=== PATIENT | male | born 1960 | race Caucasian/White ===

== ENCOUNTER 2020-11-27 03:27 | Emergency (ER) | payer SELFPAY ==
--- NOTE | 2020-11-27 03:49 | EDM.PDOC ---
ED HPI GENERAL MEDICAL PROBLEM - General Chief Complaint: Chest Pain Stated Complaint: Chest Pain Time Seen by Provider: 11/27/20 03:48 Source of Information: Reports: Patient History Limitations: Reports: No Limitations - History of Present Illness INITIAL COMMENTS - FREE TEXT/NARRATIVE: 60-year-old male presents to the ED complaining of central chest discomfort that started about 1930 hrs. last evening about an hour and a half 80 after eating supper. He cannot remember for sure what he ate for supper. He did recognize that he seemed to have some distention of the upper abdomen and did drink some rebecca jean-paul last night with some improvement in the chest pressure discomfort with burping and belching. Patient appreciated that his blood pressure was mildly elevated last evening before going to bed and remains elevated. He was on blood pressure medication in the past but was able to get off of it with weight loss. Blood pressure was 167/100. This is higher than normal for him. He has been sleeping off and on during the night but every time he wakes up he still has central chest discomfort with no radiation through to his back. He is feeling some pain in his left shoulder and down his left arm. 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 He has no known cardiac history. Denies being diabetic. Has been having more GERD symptoms recently. Was previously on Prilosec but has been off for several months. Is using more Tums and Rolaids recently. He has had no abdominal surgery. Onset: Gradual Onset Date: 11/26/20 Onset Time: 19:30 Duration: Hour(s):, Constant Location: Reports: Chest (Central retrosternal chest discomfort. Retrosternal chest discomfort rating up towards the left shoulder and down the medial left arm.), Upper Extremity, Left Quality: Reports: Ache, Pressure Severity: Moderate (The discomfort is 4 out of 10.) Improves with: Reports: None Worsens with: Reports: None Context: Denies: Activity, Exercise, Lifting, Sick Contact, Trauma, Other Associated Symptoms: Reports: Chest Pain (Anginal chest discomfort since 1930 hrs. last evening. No change in the severity or rare cough), Cough (Casual sputum production but he has not looked at the color of it.), cough w sputum, Shortness of Breath. Denies: No Other Symptoms, Confusion (position of the pain. 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 He did take 1 baby aspirin last evening. He usually takes 1 every morning as well.) Middle Chest Pain Score (Numeric/FACES): 3 - Related Data Allergies Allergy/AdvReac Type Severity Reaction Status Date / Time Sulfa (Sulfonamide Allergy Severe Hives Verified 11/27/20 03:47 Antibiotics) Home Meds: Home Meds Aspirin [Sukhwinder Chewable] 81 mg PO DAILY 11/27/20 [History] Past Medical History Cardiovascular History: Reports: Hypertension (History of hypertension in the past but got off medications with weight loss.) Respiratory History: Reports: None Musculoskeletal History: Reports: Back Pain, Chronic, Osteoarthritis Endocrine/Metabolic History: Reports: Obesity/BMI 30+ Social & Family History - Tobacco Use Tobacco Use Status *Q: Never Tobacco User - Recreational Drug Use Recreational Drug Use: No - Living Situation & Occupation 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 Denies: Fever, Chills, Malaise, Weakness, Decreased Appetite, Weight Loss HEENT: Reports: Glasses Respiratory: Reports: Shortness of Breath, Cough, Sputum. Denies: Wheezing, Pleuritic Chest Pain, Hemoptysis (Occasional cough occasional sputum production but he has not looked at the color.) Cardiovascular: Reports: Chest Pain, Blood Pressure Problem (Chest discomfort since 1930 hrs. last evening. Problematic in the past but higher this), Dyspnea on Exertion. Denies: Claudication, Edema, Lightheadedness, Orthopnea ( last 24 hours than normal.), Palpitations Endocrine: Reports: Fatigue GI/Abdominal: Reports: Other (Has GERD with intermittent use of Tums and Rolaids. Previously on Prilosec but but has been off for 3 months.) : Reports: Frequency, Other (Nocturia usually x2.) Musculoskeletal: Reports: Neck Pain, Joint Pain (Knees hips low back left upper shoulder pain) Skin: Reports: No Symptoms Neurological: Reports: No Symptoms Psychiatric: Reports: No Symptoms Hematologic/Lymphatic: Reports: No Symptoms Immunologic: Reports: No Symptoms ED EXAM, GENERAL - Physical Exam Exam: See Below Exam Limited By: No Limitations General Appearance: Alert, WD/WN, No Apparent Distress, Other (Temperature is 36.8 degrees. Heart rate 77 and sinus. Respiratory is 15. BP is 172/101 but came down to 152/94 after he been in the department for 15 minutes or so.) Eye Exam: Bilateral Eye: Normal Inspection (No blepharal pallor or scleral icterus.), PERRL Throat/Mouth: Normal Inspection, Normal Lips, Normal Oropharynx Head: Atraumatic, Normocephalic Neck: Normal Inspection, Supple, Non-Tender, Full Range of Motion. No: Lymphadenopathy (L), Lymphadenopathy (R) Respiratory/Chest: No Respiratory Distress, Lungs Clear, Normal Breath Sounds, Chest Non-Tender Cardiovascular: Normal Peripheral Pulses, Regular Rate, Rhythm, No Edema, No Gallop, No Murmur, No Rub Peripheral Pulses: 2+: Carotid (L), Carotid (R), Posterior Tibial (L), Posterior Tibial (R), Dorsalis Pedis (L), Dorsalis Pedis (R) GI/Abdominal: Normal Bowel Sounds, Soft, Non-Tender, No Organomegaly, No Mass, Pelvis Stable, Other (No surgical scars. Negative Ratliff sign. Abdominal girth limits ability to palpate solid organs.). No: Guarding, Rigid, Rebound ( No abdominal tenderness could be elicited.), Tender (Male) Exam: No Hernia Back Exam: Normal Inspection, Full Range of Motion. No: CVA Tenderness (L), CVA Tenderness (R) Extremities: Normal Inspection, Normal Range of Motion, Non-Tender, No Pedal Edema Neurological: Alert, Oriented, CN II-XII Intact, Normal Cognition Psychiatric: Normal Affect, Normal Mood Skin Exam: Warm, Dry, Intact, Normal Color, No Rash #1 Interpretation EKG Date: 11/27/20 Time: 03:57 Rhythm: NSR Rate (Beats/Min): 75 [place]: Normal P-Wave: Present QRS: Other (Mildly decreased voltage limb leads early R wave transition consider right ventricular hypertrophy versus septal hypertrophy pattern.) ST-T: Normal (Mild diffuse early repolarization pattern.) QT: Normal EKG Interpretation Comments: Borderline ECG with no signs of ischemia Course - Vital Signs Last Recorded V/S: Last Vital Signs Temp 36.8 C 02/26/21 03:43 Pulse 68 11/27/20 04:49 Resp 18 11/27/20 04:49 BP 131/81 11/27/20 04:49 Pulse Ox 95 11/27/20 04:49 - Orders/Labs/Meds Orders: Active Orders 24 hr Category Date Time Status Chest 1V Frontal [CR] Stat Exams 11/27/20 03:57 Taken EKG 12 Lead [EK] Stat Ther 11/27/20 03:48 Ordered Labs: Laboratory Tests 11/27/20 11/27/20 11/27/20 Range/Units 04:05 04:05 04:05 WBC 9.15 H (4.23-9.07) K/mm3 RBC 4.91 (4.63-6.08) M/mm3 Hgb 14.5 (13.7-17.5) gm/dl Hct 43.9 (40.1-51.0) % MCV 89.4 (79.0-92.2) fl MCH 29.5 (25.7-32.2) pg MCHC 33.0 (32.2-35.5) g/dl RDW Std Deviation 44.3 H (35.1-43.9) fL Plt Count 325 (163-337) K/mm3 MPV 8.9 L (9.4-12.3) fl Neut % (Auto) 67.8 (34.0-67.9) % Lymph % (Auto) 22.1 (21.8-53.1) % [place] % (Auto) 8.0 (5.3-12.2) % Eos % (Auto) 1.6 (0.8-7.0) Baso % (Auto) 0.3 (0.1-1.2) % Neut # (Auto) 6.20 H (1.78-5.38) K/mm3 Lymph # (Auto) 2.02 (1.32-3.57) K/mm3 [place] # (Auto) 0.73 (0.30-0.82) K/mm3 Eos # (Auto) 0.15 (0.04-0.54) K/mm3 Baso # (Auto) 0.03 (0.01-0.08) K/mm3 PT 10.6 (9.7-12.0) SECONDS INR 0.99 APTT 26.9 (21.7-31.4) SECONDS Sodium 140 (136-145) mEq/L Potassium 4.1 (3.5-5.1) mEq/L Chloride 103 (98-107) mEq/L Carbon Dioxide 27 (21-32) mEq/L Anion Gap 14.1 (5-15) BUN 19 H (7-18) mg/dL Creatinine 1.3 (0.7-1.3) mg/dL Est Cr Clr Drug Dosing 55.08 mL/min Estimated GFR (MDRD) 56 (>60) mL/min BUN/Creatinine Ratio 14.6 (14-18) Glucose 109 (80-115) mg/dL Hemoglobin A1c ( - 5.6) % Calcium 10.2 H (8.5-10.1) mg/dL Magnesium 1.9 (1.8-2.4) mg/dl Total Bilirubin 0.3 (0.2-1.0) mg/dL AST 19 (15-37) U/L ALT 38 (16-63) U/L Alkaline Phosphatase 77 (46-116) U/L CK-MB (CK-2) 1.0 (0-3.6) ng/ml Troponin I < 0.017 (0.00-0.056) ng/mL C-Reactive Protein 0.8 (<1.0) mg/dL NT-Pro-B Natriuret Pep (0-125) pg/mL Total Protein 7.6 (6.4-8.2) g/dl Albumin 3.8 (3.4-5.0) g/dl Globulin 3.8 gm/dL Albumin/Globulin Ratio 1.0 (1-2) Urine Color (Yellow) Urine Appearance (Clear) Urine pH (5.0-8.0) Ur Specific [place] (1.005-1.030) Urine Protein (Negative) Urine Glucose (UA) (Negative) Urine Ketones (Negative) Urine Occult Blood (Negative) Urine Nitrite (Negative) Urine Bilirubin (Negative) Urine Urobilinogen (0.2-1.0) Ur Leukocyte Esterase (Negative) Urine RBC (0-5) /hpf Urine WBC (0-5) /hpf Ur Epithelial Cells (0-5) /hpf Urine Bacteria (FEW) /hpf Urine Mucus (FEW) /hpf 0211/27/20 11/27/20 Range/Units 04:05 04:05 05:43 WBC (4.23-9.07) K/mm3 RBC (4.63-6.08) M/mm3 Hgb (13.7-17.5) gm/dl Hct (40.1-51.0) % MCV (79.0-92.2) fl MCH (25.7-32.2) pg MCHC (32.2-35.5) g/dl RDW Std Deviation (35.1-43.9) fL Plt Count (163-337) K/mm3 MPV (9.4-12.3) fl Neut % (Auto) (34.0-67.9) % Lymph % (Auto) (21.8-53.1) % [place] % (Auto) (5.3-12.2) % Eos % (Auto) (0.8-7.0) Baso % (Auto) (0.1-1.2) % Neut # (Auto) (1.78-5.38) K/mm3 Lymph # (Auto) (1.32-3.57) K/mm3 [place] # (Auto) (0.30-0.82) K/mm3 Eos # (Auto) (0.04-0.54) K/mm3 Baso # (Auto) (0.01-0.08) K/mm3 PT (9.7-12.0) SECONDS INR APTT (21.7-31.4) SECONDS Sodium (136-145) mEq/L Potassium (3.5-5.1) mEq/L Chloride (98-107) mEq/L Carbon Dioxide (21-32) mEq/L Anion Gap (5-15) BUN (7-18) mg/dL Creatinine (0.7-1.3) mg/dL Est Cr Clr Drug Dosing mL/min Estimated GFR (MDRD) (>60) mL/min BUN/Creatinine Ratio (14-18) Glucose (80-115) mg/dL Hemoglobin A1c 5.9 H ( - 5.6) % Calcium (8.5-10.1) mg/dL Magnesium (1.8-2.4) mg/dl Total Bilirubin (0.2-1.0) mg/dL AST (15-37) U/L ALT (16-63) U/L Alkaline Phosphatase (46-116) U/L CK-MB (CK-2) (0-3.6) ng/ml Troponin I (0.00-0.056) ng/mL C-Reactive Protein (<1.0) mg/dL NT-Pro-B Natriuret Pep 14 (0-125) pg/mL Total Protein (6.4-8.2) g/dl Albumin (3.4-5.0) g/dl Globulin gm/dL Albumin/Globulin Ratio (1-2) Urine Color Yellow (Yellow) Urine Appearance Clear (Clear) Urine pH 5.5 (5.0-8.0) Ur Specific [place] > or = 1.030 (1.005-1.030) Urine Protein Negative (Negative) Urine Glucose (UA) Negative (Negative) Urine Ketones Negative (Negative) Urine Occult Blood Negative (Negative) Urine Nitrite Negative (Negative) Urine Bilirubin Negative (Negative) Urine Urobilinogen 0.2 (0.2-1.0) Ur Leukocyte Esterase Negative (Negative) Urine RBC Not seen (0-5) /hpf Urine WBC 0-5 (0-5) /hpf Ur Epithelial Cells Not seen (0-5) /hpf Urine Bacteria Rare (FEW) /hpf Urine Mucus Moderate H (FEW) /hpf Meds: Medications Discontinued Medications Generic Name Dose Route Start Last Admin Trade Name Freq PRN Reason Stop Dose Admin Aspirin 324 mg 11/27/20 03:56 11/27/20 04:09 Aspirin PO 11/27/20 03:57 324 mg ONETIME ONE Administration Dicyclomine HCl 20 mg 11/27/20 06:26 11/27/20 06:37 Bentyl PO 11/27/20 06:27 20 mg ONETIME ONE Administration Famotidine 20 mg 11/27/20 06:26 11/27/20 06:37 Pepcid PO 11/27/20 06:27 20 mg ONETIME ONE Administration Hydromorphone HCl 0.5 mg 11/27/20 03:58 11/27/20 04:09 Dilaudid IVPUSH 11/27/20 03:59 0.5 mg ONETIME ONE Administration Sodium Chloride 1,000 mls @ 100 mls/hr 11/27/20 04:00 11/27/20 04:09 Normal Saline IV 100 mls/hr ASDIRECTED [facility] Administration Nitroglycerin/Dextrose 25 mg in 250 mls @ 6 mls/hr 11/27/20 04:00 11/27/20 04:10 Nitroglycerin 25 Mg/D5w 250 Ml IV 10 mcg/min TITRATE NOLVIA 6 mls/hr Administration Protocol 10 MCG/MIN Metoclopramide HCl 7.5 mg 11/27/20 03:58 11/27/20 04:09 Reglan IVPUSH 11/27/20 03:59 7.5 mg ONETIME ONE Administration - Radiology Interpretation Free Text/Narrative:: 60-year-old male presents to the ED with persistent retrosternal chest pressure discomfort since about 1930 hrs. last evening. This occurred about an hour and half after eating supper. He states it seemed to improve after drinking some rebecca jean-paul last evening which did precipitate some burping and belching. However chest pressure remains overnight. He slept for a couple of hours only and continues to have retrosternal chest discomfort. He thinks it is radiating to the left shoulder and down his left arm at times as well. He has no known coronary history disease. He denies any history of diabetes. He used to have hypertension and blood pressure has been notably elevated this evening at home. He has been off medications after weight loss allowed him to discontinue meds. He has been having more heartburn recently and using Tums and Rolaids. He used to use Prilosec but has been off for about 3 months. Lungs are clear to auscultation percussion. Blood pressure initially was elevated but came down over time in the department. ECG shows sinus rhythm at 75/min with no evidence of ischemic change. Plan he will have 324 mg aspirin given. He will have a nitroglycerin drip started at 10 mcg/min until we can rule him out as an UT. Routine labs including cardiac markers to be done. Given Bentyl 20 mg by mouth. Dilaudid 0.5 mg IV with Reglan 7.5 mg IV for pain relief. - Re-Assessments/Exams Free Text/Narrative Re-Assessment/Exam: 11/27/20 04:41 chest x-ray done portably reveals normal cardiac silhouette. Right hemidiaphragm is slightly elevated. There is a mild diffuse vascular congestion pattern per portable technique.Hematology reveals a normal white count at 9.15. The auto differential shows 67.8% neutrophils. Hemoglobin is 14.5 with hematocrit of 43.9. Platelet count is 325,000. Hemoglobin A1c is 5.9. 11/27/20 05:45 Sodium is 140 with a potassium of 4.1. Chloride is 103 with a bicarb of 27. Anion gap is 14.1. BUN is 19 with a creatinine of 1.3. Estimated GFR is 56. Glucose is 109. Hemoglobin A1c is 5.9. Calcium is 10.2. Magnesium is 1.9. Liver function is normal. CK-MB fraction is 1.0 with a troponin I of less than 0.017. C-reactive protein is 0.8. BNP is 14 total protein of 7.6 albumin fraction 3.8. Departure - Departure Time of Disposition: 06:29 Disposition: Home, Self-Care 01 Reason for Transfer *Q: Other Condition: Good Clinical Impression: Non-cardiac chest pain, Musculoskeletal pain of left upper extremity, Esophageal spasm, Hiatal hernia Instructions: Hernia, Adult, Esophageal Spasm, Nonspecific Chest Pain, Adult Referrals: PCP,None [Primary Care Provider] - Forms: ED Department Discharge Additional Instructions: Ev stomach. Aluation the emergency room tonight in regards to central chest discomfort rating up into the left shoulder and arm since about 1930 hrs. last evening. It persisted throughout the night and made you come to the emergency room for evaluation. ECG did not reveal any signs of heart related illness. Chest x-ray was normal as well. Lab test also proved to be negative for any blood clots in the lungs and normal heart cardiac markers for heart attack. Therefore pain appears to be coming from GI tract and I strongly suspect that you have a hiatal hernia which can refer pain up into the chest and neck and even the shoulder at times. Esophageal spasm from reflux is also a possibility. I suspect her left upper extremity pain is actually referred more from your upper back and anterior chest pain . I would suggest taking Pepcid 20 mg tablet every night at bedtime for about 2 weeks to make sure that any reflux into the esophagus has healed. If problems persist then you would need an upper GI endoscopy or scope to rule out a ulceration and would also visualize hiatal hernia. Activity as tolerated with no changes in medication. Blood pressure came down to normal in the ED and you do not need to return to blood pressure medication. Test also revealed no evidence of diabetes. Continued attempt at weight loss would ease up pressure on the abdomen and stomach. Sepsis Event Note (ED) - Evaluation Sepsis Screening Result: No Definite Risk - Focused Exam Vital Signs: Vital Signs Temp Pulse Resp BP Pulse Ox 11/27/20 04:49 68 18 131/81 95 11/27/20 03:43 36.8 C 77 15 172/101 H 95 - My Orders Last 24 Hours: My Active Orders 11/27/20 03:48 EKG 12 Lead [EK] Stat 11/27/20 03:57 Chest 1V Frontal [CR] Stat - Assessment/Plan Last 24 Hours: My Active Orders 11/27/20 03:48 EKG 12 Lead [EK] Stat 11/27/20 03:57 Chest 1V Frontal [CR] Stat
[2020-11-27] MEDS ORDERED: Aspirin 81 MG Tab.Chew PO ONE (03:56)
[2020-11-27] MEDS ORDERED: Metoclopramide 10 MG/2 ML SDV IVPUSH ONE (03:58)
[2020-11-27] MEDS ORDERED: HYDROmorphone 0.5 MG/0.5 ML Syringe IVPUSH ONE (03:58)
[2020-11-27] MEDS ORDERED: Nitroglycerin/D5W 25 MG/250 ML BOTTLE IV SCH (04:00)
[2020-11-27] MEDS ORDERED: Sodium Chloride 0.9% 1,000 ML IV SCH (04:00)
[2020-11-27 04:33] LABS: HEMOGLOBIN A1C 5.9 %
[2020-11-27] MEDS ORDERED: Famotidine 20 MG Tab PO ONE (06:26)
[2020-11-27] MEDS ORDERED: Dicyclomine 10 MG Cap PO ONE (06:26)
--- NOTE | 2020-11-27 08:06 | CR ---
Chest: Portable view of the chest was obtained. Comparison: No prior chest imaging is available. Heart size and mediastinum are normal. Lungs are clear with no acute parenchymal change. Bony structures are grossly intact. Impression: 1. Nothing acute is seen on portable chest x-ray. Diagnostic code #1
== END 2020-11-27 06:42 | disposition home or self-care (01) ==
LOC: JD.ED 03:27
DX: R07.89 Other chest pain (principal); M79.602 Pain in left arm; K22.4 Dyskinesia of esophagus; K44.9 Diaphragmatic hernia without obstruction or gangrene; I10 Essential (primary) hypertension; M19.90 Unspecified osteoarthritis, unspecified site; E66.9 Obesity, unspecified; Z68.42 Body mass index [BMI] 45.0-49.9, adult; Z88.2 Allergy status to sulfonamides; Z79.82 Long term (current) use of aspirin
CPT/HCPCS: 36415; 71045; 80053; 81001; 82553; 83036; 83735; 83880; 84484; 85025; 85610; 85730; 86140; 93005; 96365; 96366; 96375; 99285; A9270; J1170; J2765; J3490; J7030; 99284